=== PATIENT | female | born 1995 ===

== ENCOUNTER 2017-03-25 21:41 | Emergency (ER) | payer OTHER ==
[2017-03-25] MEDS ORDERED: Sodium Chloride 0.9% 1,000 ML IV STA (22:11)
--- NOTE | 2017-03-25 22:14 | ED PDOC ---
HPI: CCC, URI, Sore Throat Time Seen by Provider: 03/25/17 21:58 Chief Complaint (Nursing): Abdominal Pain Chief Complaint (Provider): cough, congestion, abdominal pain History Per: Patient History/Exam Limitations: no limitations Onset/Duration Of Symptoms: Days (2) Current Symptoms Are (Timing): Still Present Location Of Pain: Throat, Headache Associated Symptoms: Fever, Chills, Sore Throat, Cough, Nasal Congestion Additional History Per: Patient Additional Complaint(s): 21 y/o female presents with cold-symptoms x 2 days. Patient notes fever, headache, nasal congestion, sore throat, nonproductive cough. Patient also with lower abdominal cramping. Denies ear pain, nausea/vomiting, chest pain, shortness of breath, palpitations, changes in bowel movements, urinary symptoms , vaginal bleeding/discharge, bowel/bladder incontinence. LMP 02/25/17 Past Medical History Reviewed: Historical Data, Nursing Documentation, Vital Signs Vital Signs: Last Vital Signs Temp 98.0 F 03/26/17 00:08 Pulse 83 03/26/17 00:08 Resp 18 03/26/17 00:08 BP 99/48 L 03/26/17 00:08 Pulse Ox 97 03/26/17 00:08 - Medical History PMH: No Chronic Diseases - Surgical History Surgical History: No Surg Hx - Family History Family History: States: Unknown Family Hx - Home Medications Home Medications: Ambulatory Orders Medication Instructions Recorded Famotidine [Pepcid] 20 mg PO BID #28 tab 09/28/14 Ondansetron ODT [Zofran ODT] 4 mg PO QID #20 odt 09/28/14 Ibuprofen 600 mg PO Q6H PRN #15 tab 10/31/14 Oseltamivir [Tamiflu] 75 mg PO BID #9 cap 03/25/17 - Allergies Allergies/Adverse Reactions: Allergies Allergy/AdvReac Type Severity Reaction Status Date / Time No Known Allergies Allergy Verified 09/28/14 16:39 Review of Systems ROS Statement: Except As Marked, All Systems Reviewed And Found Negative Constitutional: Positive for: Fever (subjective), Chills ENT: Positive for: Nose Congestion Respiratory: Positive for: Cough Genitourinary Female: Positive for: Pelvic Pain Physical Exam - Reviewed Nursing Documentation Reviewed: Yes Vital Signs Reviewed: Yes - Physical Exam Appears: Positive for: Well, Non-toxic, No Acute Distress Head Exam: Positive for: ATRAUMATIC, NORMAL INSPECTION, NORMOCEPHALIC Skin: Positive for: Normal Color ENT: Positive for: Nasal Congestion, Pharyngeal Erythema Neck: Positive for: Normal, Painless ROM Cardiovascular/Chest: Positive for: Regular Rate, Rhythm Respiratory: Positive for: Normal Breath Sounds Gastrointestinal/Abdominal: Positive for: Bowel Sounds, Soft, Tenderness ( suprapubic, right pelvic). Negative for: Distended, Guarding, Rebound Back: Positive for: Normal Inspection Extremity: Positive for: Normal ROM Neurologic/Psych: Positive for: Alert, Oriented - Laboratory Results Result Diagrams: 03/25/17 22:49 03/25/17 22:49 - ECG O2 Sat by Pulse Oximetry: 100 - Progress ED Course And Treament: labs, flu, strep, urine, OB TV u/s, Tylenol PO EXAM: US Uterus, Limited CLINICAL HISTORY: 21 years old, female; Pain; Other: Pelvic pain; Gestational age or lmp: 01/29/17 ; ; Additional info: 6wks : Pelvic pain TECHNIQUE: Real-time ultrasound of the maternal uterus (limited) with image documentation. COMPARISON: No relevant prior studies available. FINDINGS: The cervix measures 3.2 cm. There is an intrauterine gestational sac with thick silva. A yolk sac is present measuring 2.9 mm. Heart rate 159 bpm A pole is seen CRL 10 mm 7 weeks 1 day ERICKA 11/11/2017. Clinical GA 7 weeks 6 days ERICKA 11/05/2017. The LEFT ovary is unremarkable and measures 2.4 cm x 1.6 cm x 0.8 cm. The RIGHT ovary measures 2.8 cm x 2.6 cm x 2.9 cm. A RIGHT ovarian simple cyst is present measuring 2.2 cm x 1.5 cm x 1.4 cm IMPRESSION: Single intrauterine . Gestational age 7 weeks one day Simple cysts RIGHT ovary. Negative LEFT ovary Negative uterus and and cervix are Thank you for allowing us to participate in the care of your patient. Patient educated on findings, discharged with rx Tamiflu (dose given in ED) Advised fluids, tylenol PRN fever, rest. Follow up Retail [employer] 2-3 days. Return precautions given. Disposition - Clinical Impression Clinical Impression: Influenza, Abdominal pain during , Ovarian cyst - Patient ED Disposition Is Patient to be Admitted: No Counseled Patient/Family Regarding: Studies Performed, Diagnosis, Need For Followup, Rx Given - Disposition [facility]errals[facility]Outside] Disposition: Routine/Home Disposition Time: 00:11 Condition: IMPROVED Prescriptions: Oseltamivir [Tamiflu] 75 mg PO BID #9 cap Instructions: Ovarian Cyst (ED), Influenza (ED), Abdominal Pain in ( ED) Forms: [employer] (Tamazight) Print Language: THAI
[2017-03-25 22:56] LABS: BASO % 0.1 % (0.0-2.0); EOS % 0.1 % (0.0-4.0); HEMOGLOBIN 12.6 g/dL (12.0-16.0); LYMPH # 1.4 K/uL (1.0-4.3); LYMPH % 13.6 % (20.0-40.0); MEAN CELL VOLUME 88.4 fl (81.0-99.0); MEAN CORPUSCULAR HEMOGLOBIN 30.4 pg (27.0-31.0); MEAN CORPUSCULAR HGB CONC 34.4 g/dL (33.0-37.0); MEAN PLATELET VOLUME 7.8 fl (7.2-11.7); MONO # 1.2 K/uL (0.0-0.8); MONO % 11.9 % (0.0-10.0); NEUT # 7.4 K/uL (1.8-7.0); NEUT % 74.3 % (50.0-75.0); NRBC % 0.1 % (0.0-0.0); RBC 4.13 Mil/uL (3.80-5.20); RED CELL DISTRIBUTION WIDTH 12.8 % (11.5-14.5)
[2017-03-25 23:15] LABS: ALB/GLOB RATIO 1.2 (1.0-2.1); ALBUMIN 4.4 g/dL (3.5-5.0); ALT/SGPT 33 U/L (9-52); AST/SGOT 22 U/L (14-36); BLOOD UREA NITROGEN 5 mg/dl (7-17); CALCIUM 9.2 mg/dL (8.4-10.2); GFR AFRICAN-AMERICAN > 60; GFR NON-AFRICAN AMERICAN > 60
[2017-03-26 00:08] VITALS: BP 99/48; PULSE 83; RESP 18; TEMP 98
[2017-03-26 00:11] VITALS: O2SAT 100
--- NOTE | 2017-03-26 09:02 | US ---
PROCEDURE: First trimester ultrasound HISTORY: 6wks : pelvic pain COMPARISON: None available. TECHNIQUE: Standard protocol for this study/examination. FINDINGS: LMP: 01/29/2017 Prior examinations from the current : None TECHNIQUE: Real-time 2D imaging, duplex and color Doppler. FINDINGS: Cardiac activity: Present Rate: 159 BPM Measurements: [place] rump length: 1.00 cm Gestational age based on CRL 7 weeks 1 day Gestational age 6 weeks 6 days based on gestational sac measurement 2.2 cm Gestational age derived from LMP: 7 weeks 6 days ERICKA based on LMP: 11/05/2017 ERICKA based on biometry: 11/11/2017 Gestational concordance documented Yolk sac identified Uterus: Unremarkable. No Cervical abnormalities: Negative examination for cervical dilatation or effacement. Closed cervix measuring 3.20 cm Subchorionic hemorrhage: None UTERUS: 5.3 x 5.8 x 8.4 cm. ADNEXA: Right: 2.6 x 2.9 x 2.9 cm. Simple cyst 1.6 x 1.4 x 2.2 cm. Normal Doppler arterial waveform documented. Left: 0.9 x 1.7 x 2.5 cm. Normal Doppler arterial waveform documented Fluid in the cul-de-sac: None IMPRESSION: 7 weeks live intrauterine gestation. Gestational concordance documented. Concordant results (preliminary interpretation) provided by [employer]. Procedure Completed: 23:02. Preliminary (vRad) Report: Dictated and Authenticated: 23:38 Final Interpretation: 09:01 March 26, 2017.
== END 2017-03-26 01:19 | disposition home or self-care (01) ==
LOC: H.ER 21:41
DX: J11.1 Influenza due to unidentified influenza virus with other respiratory manifestations (principal); O26.891 Other specified pregnancy related conditions, first trimester; O34.81 Maternal care for other abnormalities of pelvic organs, first trimester; N83.209 Unspecified ovarian cyst, unspecified side; Z3A.01 Less than 8 weeks gestation of pregnancy
CPT/HCPCS: 76815; 80053; 81025; 84702; 85025; 86850; 86900; 87070; 87430; 87804; 96360; 99283; J7040

== ENCOUNTER 2017-06-11 23:09 | Emergency (ER) | payer SELFPAY ==
[2017-06-11 23:23] VITALS: BP 100/54; PULSE 76; RESP 16; TEMP 98.3; O2SAT 100
[2017-06-11 23:24] VITALS: BMI 19.3
== END 2017-06-12 01:31 | disposition left against medical advice (07) ==
LOC: H.ER 23:09
DX: Z02.89 Encounter for other administrative examinations (principal)

== ENCOUNTER 2017-10-16 02:24 | Inpatient (IN) | payer MEDICAID, SELFPAY ==
[2017-10-16] MEDS ORDERED: Nalbuphine HCL 10 mg/ml Ampule IVP PRN (03:45)
[2017-10-16] MEDS: Lactated Ringer's 1,000 ML IV SCH ×2 (03:55→13:00)
[2017-10-16 04:28] VITALS: RESP 16
[2017-10-16 04:38] LABS: BASO % 0.5 % (0.0-2.0); EOS # 0.1 K/uL (0.0-0.7); EOS % 1.5 % (0.0-4.0); HEMOGLOBIN 10.7 g/dL (12.0-16.0); LYMPH # 2.5 K/uL (1.0-4.3); MEAN CELL VOLUME 87.2 fl (81.0-99.0); MEAN CORPUSCULAR HEMOGLOBIN 30.5 pg (27.0-31.0); MEAN CORPUSCULAR HGB CONC 34.9 g/dL (33.0-37.0); MEAN PLATELET VOLUME 9.1 fl (7.2-11.7); MONO # 0.7 K/uL (0.0-0.8); MONO % 7.9 % (0.0-10.0); NEUT # 5.5 K/uL (1.8-7.0); NEUT % 62.1 % (50.0-75.0); NRBC % 0.1 % (0.0-0.0); RBC 3.51 Mil/uL (3.80-5.20); RED CELL DISTRIBUTION WIDTH 13.6 % (11.5-14.5); WHITE BLOOD COUNT 8.8 K/uL (4.8-10.8)
--- NOTE | 2017-10-16 06:54 | OBADHP ---
Datetime: 10/16/2017 03:46 IP Adm Impression Other: painful CTX Admit Comment, IP Provider: SOUTH# [id number] 22 y/o @ 37.1 weeks GA via LMP presents complaining of contractions. Ctx started at 11:30pm o n 10/15. They have been occuring every 3-5 minutes as per pt. She denies any vaginal bleeding/leakage of fluid, and reports good FM. She reports coitus the day before. No other complaints. ROS: as per HPI, otherwise all system reviewed and found to be negative PE: as above PMD: [facility] course: low fluid on u/s as per pt, anemia Meds: PNVs, Ferrous sulfate Pobhx: 1 , uncomplicated in 2012, at 38 weeks Psurghx: none ALL: NKDA Social: denies ETOH/Tobacco/drug abuse A: 22 y/o @ 37.1 weeks GA via LMP complaining of contractions. P: admit, routine labs (CBC, Type and screen), pain control. monitor case discussed with attending Musa Heck MD PGY3 [facility]... chart rev'd EDC Nov 10 - 36+w early labor - will give IV Ab I saw and examiend this patient...agree with note ex dating and prental care was at [facility]... Discussion about labor, pain management, , delivey and Pelvic Type - PN: Adequate Extremities - PN: Normal Abdomen - PN: Normal Back - PN: Normal Breast - PN: Normal Lungs - PN: Normal Heart - PN: Normal Thyroid - PN: Normal Neurologic - PN: Normal HEENT - PN: Normal General - PN: Abnormal Presentation-Admit: Vertex FHR - Baseline A Provider: 120s Membranes, Provider: Intact Contraction Comments Provider: Q3min Comments, ACOG Physical Exam: 2/high/thick membrane intact General exam - in distress secondary to CTX pain IP Hx Assessment: The History has been Reviewed and is Current Vital Signs Provider: Reviewed; Within Normal Limits IP Chief Complaint: Uterine contractions NICHD Variability Prov Fetus A: Moderate 6-25bpm NICHD Accel Fetus A IP Provider: [id number] FHR Category Provider Fetus A: Category I NICHD Decel Fetus A IP Provider: None Dilatation, Provider: 2 Effacement, Provider: 10 Station, Provider: -3 Genitourinary Exam: Normal DTRs - PN: Normal EGA AdmitDate IP: 36.3 IP Adm Impression: Term, intrauterine ; No Active Labor; Intact Membranes IP Admit Plan: Admit to unit; Observation/Evaluation
--- NOTE | 2017-10-16 12:52 | OBPN ---
Datetime: 10/16/2017 12:43 IP Progress Impression Other: Early Labor IP Procedures: Sterile Vag Exam IP Progress Plan: Continue present management Contraction Comments Provider: q5-8min FHR - Baseline A Provider: 120s IP Progress Note Comment: Category I FHT. Continue current management. Discussed plan with patient and all patient questions answered. NICHD Accel Fetus A IP Provider: [id number] FHR Category Provider Fetus A: Category I NICHD Variability Prov Fetus A: Moderate 6-25bpm Dilatation, Provider: 4 Effacement, Provider: 50 Station, Provider: -1 NICHD Decel Fetus A IP Provider: None Datetime: 10/16/2017 03:46 Membranes, Provider: Intact Presentation-Admit: Vertex Vital Signs Provider: Reviewed; Within Normal Limits
[2017-10-16] MEDS ORDERED: Oxytocin 30 units/LR 500ML 30 U/500 ML BAG IV ONE (15:54)
--- NOTE | 2017-10-16 15:57 | OBPN ---
Datetime: 10/16/2017 15:41 IP Progress Impression Other: Early Labor IP Procedures: Sterile Vag Exam IP Progress Plan: Continue present management; Augmentation FHR - Baseline A Provider: 120s IP Progress Note Comment: Start pitocin augmentation. Category I FHT. Discussed plan with patient and all patient questions answered. NICHD Accel Fetus A IP Provider: 15X15 FHR Category Provider Fetus A: Category I NICHD Variability Prov Fetus A: Moderate 6-25bpm Dilatation, Provider: 4 Effacement, Provider: 50 Station, Provider: -1 NICHD Decel Fetus A IP Provider: None
--- NOTE | 2017-10-16 20:13 | OBPN ---
Datetime: 10/16/2017 20:10 IP Progress Impression Other: Labor IP Procedures: Artificial ROM; Sterile Vag Exam IP Progress Plan: Continue present management; Augmentation Membranes, Provider: Ruptured Amniotic Fluid Color, Provider: Clear Contraction Comments Provider: q3min FHR - Baseline A Provider: 120s IP Progress Note Comment: AROM clear fluid. Category I FHT. Continue current management. Discusse d plan with patient and all patient questions answered. Vital Signs Provider: Reviewed; Within Normal Limits NICHD Accel Fetus A IP Provider: 15X15 FHR Category Provider Fetus A: Category I NICHD Variability Prov Fetus A: Moderate 6-25bpm Dilatation, Provider: 5 Effacement, Provider: 75 Station, Provider: 0 NICHD Decel Fetus A IP Provider: None
[2017-10-16] MEDS ORDERED: Oxycodone/Acetaminophen 5/325 mg Tab PO PRN ×2 (23:38)
[2017-10-16] MEDS ORDERED: Benzocaine/Menthol SPRAY TOP PRN (23:38)
[2017-10-17] MEDS ORDERED: Benzocaine/Menthol SPRAY TOP PRN (03:08)
[2017-10-17] MEDS ORDERED: Oxycodone/Acetaminophen 5/325 mg Tab PO PRN ×2 (03:08)
[2017-10-17 07:00] LABS: BASO % 0.3 % (0.0-2.0); EOS # 0.1 K/uL (0.0-0.7); EOS % 0.6 % (0.0-4.0); HEMOGLOBIN 10.5 g/dL (12.0-16.0); LYMPH # 2.7 K/uL (1.0-4.3); LYMPH % 25.2 % (20.0-40.0); MEAN CELL VOLUME 88.5 fl (81.0-99.0); MEAN CORPUSCULAR HEMOGLOBIN 29.8 pg (27.0-31.0); MEAN CORPUSCULAR HGB CONC 33.6 g/dL (33.0-37.0); MEAN PLATELET VOLUME 9.2 fl (7.2-11.7); MONO # 0.7 K/uL (0.0-0.8); MONO % 6.4 % (0.0-10.0); NEUT # 7.3 K/uL (1.8-7.0); NEUT % 67.5 % (50.0-75.0); RBC 3.54 Mil/uL (3.80-5.20); RED CELL DISTRIBUTION WIDTH 13.3 % (11.5-14.5); WHITE BLOOD COUNT 10.8 K/uL (4.8-10.8)
--- NOTE | 2017-10-17 08:28 | OBDS ---
DELIVERY PERSONNEL Delivery Doctor: Cedrick Glass MD Embryology Professor: Marisa Gilmore RN MATERNAL INFORMATION Delivery Anesthesia: None Medications in Delivery: Pitocin 30 units Estimated Blood Loss (ml): 200 Placenta Cultured: No Maternal Complications: None Provider Comments: . Pt delivered viable with apgars 9/9. infant delivered via JOSÉ LUIS position. Placenta delivere d spontaneously. No lacerations, perineum intact. Uterus firm and appropriately hemostatic followin g delivery. Pt tolerated delivery well. No complications. EBL 200cc. LABOR SUMMARY EDC: 11/10/2017 00:00 No. Babies in Womb: 1 Attempted: No Labor Anesthesia: None LABOR INFORMATION Reason for Induction: Not Applicable Onset of Labor: 10/15/2017 23:30 Complete Dilatation: 10/16/2017 21:15 Oxytocin: Augmentation Group B Beta Strep: Done, Result Unknown Antibiotics # of Doses: 4 Antibiotics Time of Last Dose: 1930 Steroids Given: None Reason Steroids Not Administered: Not Applicable MEMBRANES Membranes Rupture Method: Artificial Rupture of Membranes: 10/16/2017 20:10 Length of Rupture (hrs): 1.25 Amniotic Fluid Color: Clear Amniotic Fluid Amount: Moderate Amniotic Fluid Odor: Normal STAGES OF LABOR Stage 1 hrs: 21 Stage 1 min: 45 Stage 2 hrs: 0 Stage 2 min: 10 Stage 3 hrs: 0 Stage 3 min: 5 Total Time in Labor hrs: 22 Total Time in Labor min: 0 VAGINAL DELIVERY Episiotomy: None Laceration Extension: N/A Laceration Type: None Initial Vag Sponge Count: 5 Final Vag Sponge Count: 5 Initial Vag Sharps Count: 0 Final Vag Sharps Count: 0 Sponge Count Correct: Yes Sharps Count Correct: N/A BABY A INFORMATION Delivery Date/Time: 10/16/2017 21:25 Method of Delivery: Vaginal Born in Route : No : N/A Forceps: N/A Vacuum Extraction: N/A Shoulder Dystocia : No SHOULDER DYSTOCIA BABY A Infant Delivery Date/Time: 10/16/2017 21:25 PRESENTATION/POSITION BABY A Presentation: Cephalic Cephalic Presentation: Vertex Breech Presentation: N/A PLACENTA INFORMATION BABY A Placenta Delivery Time : 10/16/2017 21:30 Placenta Method of Delivery: Spontaneous Placenta Status: Delivered SCORES BABY A Heart Rate 1 min: >100 bpm Resp Effort 1 min: Good Cry Reflex Irritability 1 min: Cough or Sneeze or Pulls Away Muscle Tone 1 min: Active Motion Color 1 min: Body [place], Extremities Blue Resuscitation Effort 1 min: N/A SCORE 1 MIN: 9 Heart Rate 5 min: >100 bpm Resp Effort 5 min: Good Cry Reflex Irritability 5 min: Cough or Sneeze or Pulls Away Muscle Tone 5 min: Active Motion Color 5 min: Body [place], Extremities Blue Resuscitation Effort 5 min: N/A SCORE 5 MIN: 9 INFORMATION BABY A Gestational Age at Delivery: 36.3 Gestational Status: Outcome : Liveborn Infant Condition : Stable Infant Sex: Female IDENTIFICATION/MEDS BABY A ID Band Number: [id number] ID Band Location: Left Leg; Left Arm WEIGHT/LENGTH BABY A Infant Birthweight (gms): 2490 Weight (lb): 5 Infant Weight (oz): 8 CORD INFORMATION BABY A No. Cord Vessels: 3 Nuchal Cord : N/A Nuchal Cord Other: N/A True Knot: N/A Cord pH Baby Arterial: N/A Infant Cord pH Baby Venous: N/A Cord Blood Taken: Yes Banking/Donate Info: n/a Infant Suction: None; Mouth
--- NOTE | 2017-10-17 08:28 | OBDS ---
DELIVERY PERSONNEL Delivery Doctor: Cedrick Glass MD Parts Picker: Tobin Gilmorea RN MATERNAL INFORMATION Delivery Anesthesia: None Medications in Delivery: Pitocin 30 units Estimated Blood Loss (ml): 200 Placenta Cultured: No Maternal Complications: None Provider Comments: . Pt delivered viable with apgars 9/9. infant delivered via JOSÉ LUIS position. Placenta delivere d spontaneously. No lacerations, perineum intact. Uterus firm and appropriately hemostatic followin g delivery. Pt tolerated delivery well. No complications. EBL 200cc. LABOR SUMMARY EDC: 11/10/2017 00:00 EDC: 11/05/2017 00:00 (Annotations: as per pt statement) No. Babies in Womb: 1 Attempted: No Labor Anesthesia: None LABOR INFORMATION Reason for Induction: Not Applicable Onset of Labor: 10/15/2017 23:30 Complete Dilatation: 10/16/2017 21:15 Oxytocin: Augmentation Group B Beta Strep: Done, Result Unknown Antibiotics # of Doses: 4 Antibiotics Time of Last Dose: 1930 Steroids Given: None Reason Steroids Not Administered: Not Applicable MEMBRANES Membranes Rupture Method: Artificial Rupture of Membranes: 10/16/2017 20:10 Length of Rupture (hrs): 1.25 Amniotic Fluid Color: Clear Amniotic Fluid Amount: Moderate Amniotic Fluid Odor: Normal STAGES OF LABOR Stage 1 hrs: 21 Stage 1 min: 45 Stage 2 hrs: 0 Stage 2 min: 10 Stage 3 hrs: 0 Stage 3 min: 5 Total Time in Labor hrs: 22 Total Time in Labor min: 0 VAGINAL DELIVERY Episiotomy: None Laceration Extension: N/A Laceration Type: None Initial Vag Sponge Count: 5 Final Vag Sponge Count: 5 Initial Vag Sharps Count: 0 Final Vag Sharps Count: 0 Sponge Count Correct: Yes Sharps Count Correct: N/A BABY A INFORMATION Delivery Date/Time: 10/16/2017 21:25 Method of Delivery: Vaginal Born in Route : No : N/A Forceps: N/A Vacuum Extraction: N/A Shoulder Dystocia : No SHOULDER DYSTOCIA BABY A Infant Delivery Date/Time: 10/16/2017 21:25 PRESENTATION/POSITION BABY A Presentation: Cephalic Presentation: Cephalic Presentation: Cephalic Presentation: Cephalic Cephalic Presentation: Vertex Breech Presentation: N/A PLACENTA INFORMATION BABY A Placenta Delivery Time : 10/16/2017 21:30 Placenta Method of Delivery: Spontaneous Placenta Status: Delivered SCORES BABY A Heart Rate 1 min: >100 bpm Resp Effort 1 min: Good Cry Reflex Irritability 1 min: Cough or Sneeze or Pulls Away Muscle Tone 1 min: Active Motion Color 1 min: Body [place], Extremities Blue Resuscitation Effort 1 min: N/A SCORE 1 MIN: 9 Heart Rate 5 min: >100 bpm Resp Effort 5 min: Good Cry Reflex Irritability 5 min: Cough or Sneeze or Pulls Away Muscle Tone 5 min: Active Motion Color 5 min: Body [place], Extremities Blue Resuscitation Effort 5 min: N/A SCORE 5 MIN: 9 INFORMATION BABY A Gestational Age at Delivery: 36.3 Gestational Status: Outcome : Liveborn Infant Condition : Stable Infant Sex: Female IDENTIFICATION/MEDS BABY A ID Band Number: [id number] ID Band Location: Left Leg; Left Arm WEIGHT/LENGTH BABY A Birthweight (gms): 2490 Infant Weight (lb): 5 Infant Weight (oz): 8 CORD INFORMATION BABY A No. Cord Vessels: 3 Nuchal Cord : N/A Nuchal Cord Other: N/A True Knot: N/A Infant Cord pH Baby Arterial: N/A Cord pH Baby Venous: N/A Cord Blood Taken: Yes Banking/Donate Info: n/a Suction: None; Mouth
[2017-10-17] MEDS: Multivitamin With Minerals Tab PO SCH (08:35)
[2017-10-17] MEDS ORDERED: Multivitamin With Minerals Tab PO SCH (09:00)
--- NOTE | 2017-10-17 13:16 | US ---
Date of service: 10/17/2017 PROCEDURE: Bilateral lower extremity venous duplex Doppler. HISTORY: bl calf tenderness COMPARISON: None available. TECHNIQUE: Bilateral common femoral, superficial femoral, popliteal and posterior tibial veins were evaluated. Flow was assessed with color Doppler, compressibility, assessment of phasic flow and augmentation response. FINDINGS: COMMON FEMORAL VEIN: Right CFV: Unremarkable. Left CFV: Unremarkable. SUPERFICIAL FEMORAL VEIN: Right SFV: Unremarkable. Left SFV: Unremarkable. POPLITEAL VEIN: Right Popliteal: Unremarkable. Left Popliteal: Unremarkable. POSTERIOR TIBIAL VEIN: Right PTV: Unremarkable. Left PTV: Unremarkable. OTHER FINDINGS: None. IMPRESSION: No evidence of deep venous thrombosis.
--- NOTE | 2017-10-17 22:36 | OBPPN ---
Datetime: 10/17/2017 07:30 PP Pain Prov: Within normal limits PP Nausea Prov: Denies PP Flatus Prov: Yes PP BM Prov: No PP Breasts Prov: Not Done PP Heart Prov: Normal PP Lungs Prov: Normal PP Abdomen/Uterus Prov: Normal PP Lochia Prov: Normal PP Vulva/Perineum Prov: Not Done PP CVA Tenderness Prov: Not Done PP Extremities Prov: Abnormal PP C/S Incision Prov: Not Applicable PP Progress Prov: Normal PP Comments Phys Exam Prov: bilateral calf tenderness at rest and upon palpation PP Impression Prov: Normal progression PP Plan Prov: Continue present management PP Progress Note Prov: PPD 1 S: 22 yo s/p NVD on 10/16/2017 at 21:25. Pt. is seen and examined at bedside this AM. No sign ificant overnight events. Pt reports occasional abdominal pain, but well controlled with pain meds. P t reports recent bilateral calf tenderness; denies SOB. Breast feeding baby. Tolerating PO diet. [place] is similar to light menses in volume. Voiding freely, no bowel movement, but passing gas per rectu m. Denies fever, chills, diarrhea, nausea, vomiting, chest pain, dyspnea, and dizziness. O: VS: stable GEN: NAD Cardio: S1S2, no M/G/R Resp: clear breath sounds b/l Abdomen: BS+, NT, Uterus is firm and at the level of the umbilicus. EXT: No edema, calves mildy tender bilaterally; ROM, strength, sensation grossly intact NEURO/PSYCHI: AAOx3, no grossly focal deficit, preserved affect and mood. Assessment/Plan: 22 yo s/p NVD on 10/16/2017 at 21:25. Pt remains afebrile, tolerating pain wi th medication, tolerating PO intake, doing well on PPD1. OOB with caution SCDs for DVT prophylaxis, pt encouraged to ambulate Monitor vital signs for tachypnea, SOB, tachycardia, decrease in O2 saturation Consider venous duplex of bilateral lower extremities Ibuprofen 600mg for pain. Encourage and ambulating F/u CBC post-delivery: 10.5/31.3 Anticipated d/c to home, 10/18/2017. Case dw OB attending --- José Luis Winchester MD PGY-2 OB Hospitalist note: On rounds I saw and examined this patient. Agree with note ANSHU ORANTES PP Procedures Comments: bilateral venous duplex Vital Signs Provider PP: Reviewed; Within Normal Limits
[2017-10-18] MEDS: Multivitamin With Minerals Tab PO SCH (09:18)
--- NOTE | 2017-10-18 10:23 | OBPPN ---
Datetime: 10/18/2017 08:34 PP Pain Prov: Within normal limits PP Nausea Prov: Denies PP Flatus Prov: Yes PP BM Prov: Yes PP Heart Prov: Normal PP Lungs Prov: Normal PP Abdomen/Uterus Prov: Normal PP Lochia Prov: Normal PP Extremities Prov: Normal PP C/S Incision Prov: Not Applicable PP Progress Prov: Normal PP Impression Prov: Normal progression PP Plan Prov: Continue present management PP Progress Note Prov: S: Pt is a 22 yo 36.3 wk s/p on 10/16/17 PPD 2. Seen and examined at bedside this am. Patient denies any significant overnight events. Reports mild pelvic pain which is controlled with pain medicine. OOB/Ambulation well without dizziness. Breast feeding without diff iculty. Tolerating regular diet. Lochia is similar to menses. Voiding freely with no blood noted, Pat ient has had a bowel movement, and is passing gas per rectum. Denies fever/chills, diarrhea, nausea/v omiting, CP/SOB , Lightheadedness. Pt states her calf pain is less than yesterday. O: BP:130/70, HR:60, T:98.6F, RR:18, SpO2 99% CBC-10.5/31.3, blood type: A+, rubella: Immune PHYSICAL EXAM: GEN: AAOx3, Resting comfortably in bed, NAD HEENT: NCAT, White sclera, pink conjunctiva, oral mucosa moist. LUNGS: CTA B/L, no wheezing, rhonchi, or rales, B/L chest rise CVS: RRR, S1, S2, No murmurs, rubs, gallops ABD: ND, +BS, firm fundus @ umbilical level. Soft, appropriate TTP EXT: no edema, negative Shayna's sign, calves mildy tender, less than yesterday NEURO/Psych: no gross focal deficit, preserved affect and mood. A/P 22 y/o 36.3 wks post , had a on 7/21/18 @ 21:25. Pt afebrile, tolerating pain w ith medication, tolerating regular diet, adequate urine output. Encourage and ambulation Ibuprofen 600mg mild pain PNV 1 tab po daily Post op contraception- Wants patch F/U 4-6 weeks for post- visit at the [facility] Shagufta Castillo M.D. PGY-1 Patient was seen and examined with Dr. Hatfield Patient seen and examined by me this am. Agree with above resident note. --Dr. Fountain IP PP Procedures: None Vital Signs Provider PP: Reviewed
--- NOTE | 2017-10-18 10:26 | OBDCSUM ---
Datetime: 10/18/2017 08:08 Discharged to, Provider: Home [facility], [facility] Disch Instr Activity: May be up to bathroom; May be up for meals; May Shower Disch Instr Diet: Regular Discharge Instructions, Provider: Routine instructions given Discharge Diagnosis, Provider: Term Delivered Discharge Time: 10/18/2017 10:30 Follow up in weeks, Provider: 6 weeks Disch Referrals: None Disch Activity Restrictions: No lifting; Minimize stair-climbing; Nothing in vagina - [place], yessy arredondo Discharge Comment, Provider: 1. Continue . 2. Ibuprofen as needed for moderate pain. 3. Continue walking as much as tolerated. 4. Please plan follow up visit in 3-7 days with global engineering manager. 5. Please see your doctor in 6 weeks. 6. No heavy lifting or anything in the vagina for 6 weeks. 7. Please avoid stairs if possible. 8. If you develop severe or worsening pain, please go to the ED. Contraception after Delivery: Control Pill/Patch
[2017-10-18 18:13] VITALS: BP 110/62; PULSE 84; TEMP 97.9; O2SAT 98
== END 2017-10-18 13:50 | disposition home or self-care (01) | DRG 372 ==
LOC: H.EROB2 02:24 → H.L&D 03:41 → H.OB/GYN 10-17 00:02
PROVIDERS: ADMIT Obstetrics & Gynecology; ATTEND Obstetrics & Gynecology
PROC: 10E0XZZ Delivery of Products of Conception, External Approach (ICD-10-PCS; principal; 2017-10-16)
PROC: 4A1HXCZ Monitoring of Products of Conception, Cardiac Rate, External Approach (ICD-10-PCS; 2017-10-16)
DX: O60.14X0 Preterm labor third trimester with preterm delivery third trimester, not applicable or unspecified (principal); Z3A.36 36 weeks gestation of pregnancy; Z37.0 Single live birth